=== PATIENT | female | born 1965 | race Caucasian/White ===

== ENCOUNTER 2017-04-30 12:48 | Day surgery (SDC) | payer OTHER ==
[2017-04-30] VITALS (11 sets, daily range): BP systolic 103–140; BP diastolic 57–76; PULSE 68–93; RESP 11–21; O2SAT 93–98
[~2017-04-30] VITALS: Ht 157.5 cm; Wt 79.0 kg
[~2017-04-30 12:48] MED LIST: ATEN25TA PO; CYAN500L4 PO; ESTR1PAT77 TD; INDA2.5T2 PO; Lactated Ringer's 1,000 ML IV SCH; MULTIVITAMIN FOR HER PO; POTA20TA16 PO; ROB500 PO; VALA100026 PO
[2017-04-30] MEDS ORDERED: Lactated Ringer's 1,000 ML IV ONE ×2 (13:49→18:11)
--- NOTE | 2017-04-30 16:42 | PCM.HPANE ---
Patient Data Date of Service: Apr 30, 2017 Surgeon Admitting Provider: Attending Provider:Danyel Daniel MD Primary Care Physician:Virginie Alaniz Other Provider:Demetrio Newman Anesthesia Reason for Visit Symptomatic Left Breast Cyst Ht/WT & BMI Height (Feet): 5 Height (Inches): 2 Weight (Kilograms): 79 Body Mass Index 32.00 Allergies Coded Allergies: lisinopril (Verified Allergy, Severe, RASH, 04/24/17) tetracycline (Verified Allergy, Severe, RASH (DOXYCYCLINE), 04/24/17) Uncoded Allergies: Bandaids (Allergy, Mild, Rash, 06/26/08) MARIO INHIBITORS (Ingr Allergy) (Allergy, Unknown, UNKNOWN, 04/24/17) Past Anesthesia History Anesthesia History: Positive for:: Anesthesia Reactions (PONV w/ endometriosis procedure), Denies:: Abnormal Airway, Difficult Intubation, Fam Anesthesia Reaction, Fam Malignant Hypertherm, Malignant Hyperthermia Diabetes History Hx Diabetes?: No MRSA MRSA: No Medications Hypertension Medication: Yes (INDAPAMIDE) Home Meds Incl Beta Anup: Yes Date Beta Anup Taken: Apr 29, 2017 Time Beta Anup Taken: 2100 Reported Medications Cyanocobalamin (Vitamin B-12) (Vitamin B-12)500 Mcg [id number] Mcg PO DAILY 04/24/17 Valacyclovir 1,000 Mg Tablet1,000 Mg PO DAILY PRN PRN X 5 DAYS 04/24/17 Potassium Chloride 20 Meq Tab.er.prt20 Meq PO DAILY 30 Days Ref 0 TAKE WITH FOOD 04/24/17 [Multivitamin For Her] No Conflict Check1 Tab PO DAILY 04/24/17 Methocarbamol 500 Mg [id number],000 Mg PO QID PRN PRN 04/24/17 Indapamide 2.5 Mg Tablet5 Mg PO DAILY #30 TABLET 04/24/17 Estradiol (Climara)1 Each Patch.tdwk1 Each TD WEEKLY 0.025MG/24H 04/24/17 Atenolol 25 Mg Aetmtf56 Mg PO DAILY #30 TABLET Ref 0 04/24/17 Discontinued Reported Medications Albuterol Sulfate (Ventolin HFA Inhaler)200 Puff/18 Gm Inhaler1 Puff INH Q4 PRN For Wheezing #1 INHALER Ref 0 04/24/17 Hydrocodone-Acetaminophen 5-325 mg 1 Each Tablet1 Tablet PO BID PRN For Pain Ref 0 04/24/17 History History of ENT Problems?: Yes HEENT History: Denies:: Abnormal Airway Cataracts Difficult Intubation Dysphagia Glaucoma Hearing Problem (HX LT OTITIS EXTERNA) Sinus Problem TMJ Denture Type: None Teeth Condition: Within Normal Limits Hx of Heart Problems?: Yes Cardiovascular History: Positive for:: Chest Pain (2004-ATYPICAL MPS WNL EF 68%) Hypertension (HYPERLIPIDEMIA) Irregular Heartbeat Denies:: AICD Congestive Heart Failure Coronary Artery Disease Heart Murmur Pacemaker Peripheral Vascular Thrombophlebitis Valvular Heart Disease Hx of Respiratory Problem?: No Respiratory History: Positive for:: Asthma Pneumonia (2007) Denies:: COPD Chest Surgery Cough Dyspnea Emphysema Hemoptysis Pulmonary Embolism Tuberculosis Use of C-PAP Machine Other Resp Pertinent History: last use albuterol 4-5wks ago Hx Neurologic Problems?: Yes Neurological History: Positive for:: Headaches Denies:: Alzheimer's Disease CVA Dementia Dizziness Multiple Sclerosis Parkinson's Disease Seizures TIA Other Neurological Pertinent: HX HSV II; migraine since yesterday - frontal & occipital - dull ache Hx of GI Problems?: Yes Gastrointestinal History: Denies:: Gastroesphageal Reflux Hx of Problems?: Yes Genitourinary History: Denies:: HX of Hemodialysis Kidney Stones HX of Peritoneal Dialysis: No Female Hx: Positive for:: Endometriosis (S/P DX LAP X3) Problems with Breasts? (LT BREAST CYST=CURRENT PROBLEM) Denies:: Currently (S/P BTL) Pelvic Inflammatory Skin History: Denies:: History Skin Disorders? Pressure Ulcers Hx Musculoskeletal Problems?: Yes Musculoskeletal History: Positive for:: Back Injury (C/OF CHRONIC LOWER BACK PAIN) Musculoskeletal Trauma (Right heal pain) Osteoarthritis (C/OF ARTHROPATHY) Denies:: Degenerative Joint Fibromyalgia Joint Replacement Myasthenia Gravis Rheumatoid Arthritis Systemic Lupus Hx Surgeries?: Yes (DX LAP X3,BTL) Hx Any Other Health Problems?: Yes Other History: Positive for:: Hospitalization Denies:: Cancer Endocrine Disease Thyroid Disease History Blood Transfusions: Positive for:: Accept Blood Products? Denies:: Blood Transfusions Hx Diabetes: No Hx Alcohol Use: NoHx Substance Use: NoHave You Smoked inLast 12 mo: No Stop/Bang Treated for Sleep Apnea?: No Do You Have a CPAP Machine?: No S-Snoring: Do You Snore Loudly: No T-Tired: feel tired, fatigued: No O-Obsered: Observed not breath: No P-Blood Pressure: treated: Yes B- Body Mass Index > 35 kg/m2: No A- Age over 50: No N- Neck Large Circumference: No G- Gender Male: No RENETTA Total Score: 1 RENETTA Risk Assessment: Low Risk, <3 Yes Risk Assessment Category Category 1A: Patient has history of documented sleep apnea, and HAS NOT received any narcotic, sedative or anesthesia administration during this stay. Category 1B: Patient has history of documented sleep apnea, and HAS received any narcotic , sedative or anesthesia administration during this stay Category 2: Patient has SUSPECTED Obstructive Sleep Apnea, and HAS received any narcotic , sedative or anesthesia administration during this stay. Category 3: Patient has SUSPECTED Obstructive Sleep Apnea and HAS NOT received narcotic, sedative or anesthesia administration during this stay. Category 4: Outpatient in Procedural Areas with known sleep apnea or who screen positive for High Risk via the STOP/BANG questionnaire. Exam Exam Vital Signs Vital Signs Date Time Temp Pulse Resp B/P Pulse Ox O2 Delivery O2 Flow Rate FiO2 04/30/17 13:56 36.3 76 14 140/76 97 Room Air General Appearance: Alert, Oriented X3, Cooperative, No Acute Distress HEENT/AIRWAY: MP 3, Neck Movement (FROM), Mouth Opening (3), Other (TMD3) Lungs: Normal Air Movement Heart: Exam Unremarkable, Regular Rate/Rhythm, Normal S1, Normal S2, No Murmurs /Rubs/Gallops Meds/Labs/Diagnostics Admission Meds Current Medications Lactated Ringer's (Lr) 1,000 ml @ ud STK-MED ONCE IV Last administered on 04/30t 13:49; Start 04/30/17 at 13:49; Stop 04/30/17 at 13:50; Status DC Plan Impression Patient chart reviewed, patient interviewed and anesthestic plan with risks, benefits, and alternatives discussed, and informed consent obtained. NPO per Anesth. Guidelines: Yes ASA Physical Status: ASA2 Mod Systemic Disease Anesthetic Plan: GA Bene/Risks/Altern/Consents: Yes HP Complete Prior to Induction: Yes Bradley Heck MD Apr 30, 2017 16:42
[2017-04-30] MEDS ORDERED: Bupivacaine-MPF 0.5% W/EPI 30 mL Inj INJ ONE (17:13)
[2017-04-30] MEDS ORDERED: Lactated Ringer's 1,000 ML IV SCH (17:22)
[2017-04-30] MEDS ORDERED: Lactated Ringer's 500 ML IV PRN (17:22)
[2017-04-30] MEDS ORDERED: Ondansetron 2 mg/mL 2 mL Inj IVPUSH PRN (17:25)
[2017-04-30] MEDS ORDERED: EPHEDrine Sulfate 50 mg/mL Inj IVPUSH PRN (17:25)
[2017-04-30] MEDS ORDERED: Dexamethasone 4 mg/mL Inj IVPUSH PRN (17:25)
[2017-04-30] MEDS ORDERED: MetoCLOpramide 5 mg/mL 2 mL Inj IVPUSH PRN (17:25)
[2017-04-30] MEDS ORDERED: Phenylephrine 10,000 mCg/mL Inj IVPUSH PRN (17:25)
[2017-04-30] MEDS ORDERED: HYDROmorphone 1 mg/mL Inj IVPUSH PRN (17:25)
[2017-04-30] MEDS ORDERED: fentaNYL-PF 50 mCg/mL 2 mL Inj IVPUSH PRN (17:25)
[2017-04-30] MEDS ORDERED: HYDROcodone-APAP 5-325 mg Tablet PO PRN (18:00)
--- NOTE | 2017-04-30 18:01 | PCM.DISURG ---
Surgical Discharge Instruction Date of Service Apr 30, 2017 Dates of Hospitalization Date of Hospital Admission Providers Admitting Physician: Primary Care Physician: Virginie Alaniz Attending Physician: Danyel Daniel MD Discharge Diagnosis Discharge Diagnosis Symptomatic left breast cyst Diet Discharge Diet: No restrictions Activity Discharge Activity-General: No restrictions, Activity as pain allows Dressing and Incisional Care Dressing Instructions: Dermabond will peel left gradually Hygiene: May shower Follow Up Plan Follow Up Plan In the general surgery [place] postop clinic in 2-3 weeks for a wound check. Call your provider for: Fever, Discharge @ incision, pus discharge Danyel Daniel MD Apr 30, 2017 18:01
[2017-04-30] MEDS ORDERED: fentaNYL-PF 50 mCg/mL 2 mL Inj ONE (18:04)
--- NOTE | 2017-04-30 18:05 | PCM.SURGOP ---
Surgical Operative Report Date of Service: Apr 30, 2017 Pre Operative Diagnosis Symptomatic left breast cyst Post Operative Diagnosis Same Procedure: Excision of left breast cyst Surgeon and Resource Development Director: Surgeon: Danyel Daniel MD Assistants: John Alaniz PA-C Indication for Procedure 51-year-old woman who has had exacerbation of a painful left breast cyst since she started hormone replacement after menopause 2 years ago. On ultrasound there is a 1 cm benign appearing cyst in the 3 o'clock position, which correlates with mammographic findings of a 1.2 cm oval mass in the 4 o'clock position middle depth. After discussion of risks and benefits, she agreed to proceed with excision of left breast cyst. Findings: The cyst was excised as a second specimen, included with the specimen. Procedure Details After smooth induction of general anesthesia with an LMA, she was placed in the supine position with both arms out, and was prepped and draped in wide sterile fashion. A procedural pause was performed according to the SCOAP checklist, and all were found to be in agreement. A circumareolar incision was made along the lateral border of her left areola. Skin flaps were raised. Dissection was carried through the breast parenchyma until the palpable lesion was encountered. A conservative excision was performed with electrocautery. Several small cysts were encountered. After the initial excision, the specimen was oriented with suture. Just at the inferior border of the excised tissue, there was a 1.0 cm cyst containing clear fluid. This was excised from the surrounding tissue again with electrocautery, and included with the first specimen, labeled as left breast tissue. The cavity was marked with a single Hemoclip. The breast rectum a was closed in layers with interrupted 3-0 Vicryl sutures. The skin incision was closed with a running 4-0 Vicryl subcuticular stitch. Dermabond was applied to the skin as a dressing. At the end of the case all needle and sponge counts were correct 2. The patient was awakened from anesthesia without difficulty, and taken to the recovery room in satisfactory condition, having tolerated the procedure well. Complications There were no periprocedural complications identified. Surgical Specimen Removed: Yes Specimen sent to Pathology: Yes Surgical Specimen description: Left breast tissue Anesthetic Plan: GA Grafts, Implants: None Output, Estimated Blood Loss: 10 Blood Administration during acuña: No Drains: None Catheters: None copies to: Virginie Alaniz Joshua D MD Apr 30, 2017 18:05
--- NOTE | 2017-05-01 07:48 | PCM.ANEP1 ---
Post Anesthesia PACU Phase 1 Assessment Date of Service: May 01, 2017 Anesthetic Administered: GA Level of Alertness: Awake, talking SPAULDING's with Equal Strength: Yes Pain: No Pain Scale Score: 0 Nausea or Vomiting: No CV Function & Hydration Stable: Yes Airway Device: none in PACU Oxygen Delivery: Nasal Cannula Lungs: Normal Air Movement PACU Phase 2 Assessment Complications: No Follow up Care: N/A Patient Instructions Provided: N/A Bradley Heck MD May 01, 2017 07:48
== END 2017-04-30 23:59 | disposition home or self-care (01) ==
LOC: SAS 12:48
PROVIDERS: ATTEND Student in an Organized Health Care Education/Training Program
DX: N60.22 Fibroadenosis of left breast (principal); N64.4 Mastodynia; I10 Essential (primary) hypertension; G43.909 Migraine, unspecified, not intractable, without status migrainosus; N95.9 Unspecified menopausal and perimenopausal disorder; Z79.890 Hormone replacement therapy
CPT/HCPCS: 19120; J2405; J2765; J3010; J7120

== ENCOUNTER → 2017-07-17 | Day surgery (SDC) | payer OTHER ==
[~2017-07-17] VITALS: Ht 157.5 cm; Wt 77.1 kg
[~2017-07-17] MED LIST changes: +0.9% Sodium Chloride 1,000 ML IV SCH; +ALBU18HF INH; +DICY20TA10 PO; -Lactated Ringer's 1,000 ML IV SCH; +Sodium Chloride LOK Flush 10 mL Syringe IV PRN; +fentaNYL-PF 50 mCg/mL 2 mL Inj IVPUSH PRN
[2017-07-17 09:37] VITALS: BP 123/81; PULSE 66; RESP 14; O2SAT 99
[2017-07-17 10:58] VITALS: BP 96/61; PULSE 66; RESP 14; O2SAT 92
[2017-07-17 11:17] VITALS: BP 95/60; PULSE 74; RESP 14; O2SAT 96
--- NOTE | 2017-07-17 14:15 | ENDO ---
[address] [id number] ENDOSCOPY PROCEDURE PATIENT: KARLOS FITZPATRICK : 1965 MR#: [id number] ADMIT: 07/17/2017 JOB ID: [id number] DATE OF SERVICE: 07/17/2017 TYPE OF OPERATION: Colonoscopy. PREOPERATIVE DIAGNOSIS(ES): Colorectal cancer screening. POSTOPERATIVE DIAGNOSIS(ES): Normal colonoscopy. ANESTHESIA: Fentanyl 200 mcg, Versed 8 mg IV administered. COMPLICATIONS: None. BLOOD LOSS: Minimal. DESCRIPTION OF PROCEDURE: After risks and benefits explained to the patient, informed consent was obtained. After anesthesia administered, colonoscope was then inserted from the rectum to the cecum. Mucosa carefully examined. Prep of the patient was excellent. After procedure was done, the scope withdrawn and the procedure terminated. FINDINGS: Upon inspection of the anus, no masses, hemorrhoids, ulcers, or fissures that were seen. Throughout the entire examination no polyps, masses, or lesions. Retroflexion normal. IMPRESSION: Normal colonoscopy. RECOMMENDATIONS: Repeat colonoscopy in 10 years for colorectal cancer screening.
== END | disposition home or self-care (01) ==
LOC: END 00:48
PROVIDERS: ATTEND Internal Medicine Gastroenterology
DX: Z12.11 Encounter for screening for malignant neoplasm of colon (principal); J45.909 Unspecified asthma, uncomplicated; G43.909 Migraine, unspecified, not intractable, without status migrainosus; N80.9 Endometriosis, unspecified; Z79.51 Long term (current) use of inhaled steroids
CPT/HCPCS: G0121; G0500; J2250; J3010; J7030